=== PATIENT | male | born 2005 | race Caucasian/White ===

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

== ENCOUNTER 2024-03-02 16:41 | Outpatient (CLI) | payer OTHER, SELFPAY ==
[2024-03-02 17:51] LABS: Basophils # 0.1 10^3/uL (0.0-0.1); Basophils % 0.9 %; Eosinophils # 0.7 10^3/uL (0.0-0.8); Eosinophils % 10.1 %; Hematocrit 46.1 % (37-53); Lymphocytes # 2.3 10^3/uL (1.5-6.5); Lymphocytes % 34.6 %; Mean Corpuscular HGB Conc 33.4 g/dL (30-55); Mean Corpuscular Hemoglobin 30.5 pg (27-33); Mean Corpuscular Volume 91.3 fl (82-101); Monocytes # 0.7 10^3/uL (0.2-0.9); Monocytes % 10.1 %; Neutrophils # 2.92 10^3/uL (1.8-8.0); Neutrophils % 44.1 %; Nucleated Red Blood Cells % 0 %; Platelet Count 161 10^3/cmm (157-399); Red Blood Count 5.05 10^6/uL (3.85-5.65); White Blood Count 6.62 10^3/uL (4.5-13.0)
[2024-03-02 17:57] LABS: Slide Review Slide Review Perform
[2024-03-02 18:15] LABS: Alanine Aminotransferase 34 U/L (0-41); Albumin Level 4.8 g/dL (3.5-5.2); Alkaline Phosphatase 105 U/L (40-130); Aspartate Amino Transferase 24 U/L (0-40); Globulin 2.2 g/dL (1.3-4.6); Glomerular Filtration Rate 124.5 mL/min (90-130); Total Bilirubin 0.4 mg/dL (0.15-1.2)
[2024-03-02 18:31] LABS: Vitamin B12 1172 pg/mL (232-1245)
[2024-03-02 18:33] LABS: Folate Level 15.9 ng/mL (4.5-32.2)
[2024-03-03 08:21] LABS: 25 Hydroxy Vitamin D > 120 ng/mL (30-100)
== END 2024-03-02 16:42 | disposition home or self-care (01) ==
LOC: LAB 16:42
PROVIDERS: PCP Internal Medicine; Visit Provider Internal Medicine Rheumatology
DX: Z79.899 Other long term (current) drug therapy (principal); M25.50 Pain in unspecified joint; R76.8 Other specified abnormal immunological findings in serum
CPT/HCPCS: 36415; 80076; 82306; 82565; 82607; 82746; 85025; 86140

== ENCOUNTER → 2024-12-16 14:08 | Outpatient (BNVA) | payer OTHER, SELFPAY | PROVIDERS: PCP Internal Medicine; Visit Provider Orthopaedic Surgery | DX: M41.24 Other idiopathic scoliosis, thoracic region (principal); M54.9 Dorsalgia, unspecified | CPT/HCPCS: 72072; 72110 ==

== ENCOUNTER → 2025-03-09 16:06 | Outpatient (BNVA) | payer OTHER, SELFPAY | PROVIDERS: PCP Internal Medicine; Visit Provider Internal Medicine Rheumatology | DX: Z79.899 Other long term (current) drug therapy (principal) | CPT/HCPCS: 36415; 80076; 82565; 82657; 85025; 85651; 86140 ==

== ENCOUNTER → 2025-05-31 15:49 | Outpatient (BNVA) | payer OTHER, SELFPAY | PROVIDERS: PCP Internal Medicine; Visit Provider Internal Medicine Rheumatology | DX: Z79.899 Other long term (current) drug therapy (principal) | CPT/HCPCS: 36415; 80076; 82306; 82565; 85025; 85651; 86140; 86480; 86704; 86803; 87340 ==